=== PATIENT | male | born 1990 | race African-American/Black ===

== ENCOUNTER 2020-11-20 08:54 | Inpatient (IN) | payer OTHER ==
[~2020-11-20] VITALS: Ht 170.2 cm; Wt 75.0 kg
[2020-11-20] MEDS ORDERED: [UNRECOGNIZED DRUG - OTHER] PO (09:22)
[2020-11-20 09:25] LABS: HEMATOCRIT 44.4 % (42.0-52.0); HEMOGLOBIN 14.9 g/dl (13.5-17.5); MEAN CORPUSCULAR HEMOGLOBIN 30.6 pg (27.0-33.0); MEAN CORPUSCULAR HGB CONC 33.6 g/dl (32.0-36.5); MEAN CORPUSCULAR VOLUME 91.2 fl (80.0-96.0); PLATELET COUNT, AUTOMATED 318 10^3/uL (150-450); RED BLOOD COUNT 4.87 10^6/uL (4.30-6.10); WHITE BLOOD COUNT 5.7 10^3/uL (4.0-10.0)
[2020-11-20 10:19] LABS: ACETAMINOPHEN LEVEL < 2.0 UG/ML (10.0-30.0); ALBUMIN 4.2 GM/DL (3.2-5.2); ALT/SGPT 45 U/L (12-78); BILIRUBIN,DIRECT 0.2 MG/DL (0.0-0.2); BILIRUBIN,TOTAL 0.5 MG/DL (0.2-1.0); BLOOD UREA NITROGEN 11 MG/DL (7-18); CALCIUM LEVEL 8.9 MG/DL (8.5-10.1); CARBON DIOXIDE LEVEL 30 MEQ/L (21-32); CHLORIDE LEVEL 108 MEQ/L (98-107); CREATININE FOR GFR 0.86 MG/DL (0.70-1.30); ETHYL ALCOHOL (ETHANOL) < 0.003 % (0.000-0.010); GLOMERULAR FILTRATION RATE > 60.0 (>60); GLUCOSE, FASTING 108 MG/DL (70-100); POTASSIUM SERUM 4.3 MEQ/L (3.5-5.1); SALICYLATE LEVEL < 1.7 MG/DL (5.0-30.0); SODIUM LEVEL 142 MEQ/L (136-145); TOTAL PROTEIN 7.1 GM/DL (6.4-8.2)
[2020-11-20 10:47] LABS: AMPHETAMINES LEVEL URINE NEGATIVE (NEGATIVE); BARBITURATES URINE NEGATIVE (NEGATIVE); BENZODIAZEPINES URINE NEGATIVE (NEGATIVE); CANNABINOIDS URINE NEGATIVE (NEGATIVE); COCAINE METABOLITE URINE NEGATIVE (NEGATIVE); METHADONE URINE NEGATIVE (NEGATIVE); OPIATES URINE NEGATIVE (NEGATIVE); PHENCYCLIDINE URINE NEGATIVE (NEGATIVE)
[2020-11-20 12:59] LABS: RSV AMPLIFICATION NEGATIVE (NEGATIVE)
[2020-11-20] MEDS ORDERED: CVSTAB PO (14:13)
[2020-11-20] MEDS ORDERED: HOME MED LIST COMPLETE! XX SCH (14:15)
[2020-11-20] MEDS ORDERED: MOM 30ML SUSPENSION UDC PO PRN (16:30)
[2020-11-20] MEDS ORDERED: ACETAMINOPHEN TAB 650MG DOSE (2X325MG) PO PRN (16:30)
[2020-11-20] MEDS ORDERED: MAALOX 30 ML SUSP *UDC PO PRN (16:30)
[2020-11-20] MEDS ORDERED: traZODone 50 MG TAB PO PRN (16:30)
[2020-11-20 17:21] VITALS: BP 132/82
[2020-11-20] MEDS ORDERED: LORazepam 1 MG TAB PO PRN (17:30)
[2020-11-21 07:19] VITALS: BP 129/67
[2020-11-21 17:23] VITALS: BP 116/77
--- NOTE | 2020-11-21 19:44 | MHHPE ---
[facility] HISTORY AND PHYSICAL DATE OF ADMISSION: 11/20/2020 This is a video assessment done initially and I will be going to the hospital to see him [id number] as well. He is in the inpatient unit at the hospital, I am at home. VITAL SIGNS: Blood pressure 129/67, pulse 81, temperature 98.6. CHIEF COMPLAINT: Feels suicidal. SUBJECTIVE: He is 30 years old. He is . He has no children. His is in [facility] [place] [facility], which is where he is from originally. He is active duty at [employer]. He says he has been experiencing distress for the last few weeks, has had suicidal thoughts for the last few months, lately began developing plans, for example, overdosing or crashing his car. Cites several stressors. Says those include work. Says he could not really talk about it much, but also his being away from his and also her not having permission yet to come to the [facility]. He has applied for a visa, that was rejected. He now has an rolloff truck driver who is helping him. He has applied again. Says it may take a few months. Says with all this going on, and a deployment to [facility] last year, was away for about nine months. Says that went well. He returned, has carried on with his work. Says misses his , but that matters were going okay. He went on leave within the last couple of months. Says was on leave for about 17 days, stayed at home locally. Says felt relaxed, but when he returned to work, says there was new information related to work which applied to him and everybody else in the unit and that was stressful. Says this added to the stress related to his being away, his applying for her visa. Says has felt increasingly stressed afterwards as time has progressed over the last few weeks. His concentration has been difficult. Says he has had to work harder to maintain it so it does not impact his work. He says it has not impacted it, but that he has been concerned. Sleep is diminished. He does not think he slept with any regularity for the last several weeks. Continues with work and feels tired. Appetite has been diminished. Thinks he may have lost a few pounds. Began feeling hopeless, had suicidal thoughts. They have become more entrenched, particularly over the last couple of weeks and then, when he found out further stressful news regarding work, and he alludes to it applying to him and others in the unit yesterday, says became further distressed, suicidal, called the [employer] suicidal hotline and was then brought to the hospital. He says does not seen relief given these conditions, work-related as well as his , until these matters are resolved. Has a few local supports, but she did not go into detail. He does say would not talk about his personal matters with them in any case. His father lives on [place]. Has a sister in [place]. He is in touch with them. Says they get along. He has been in touch with his by Face Time daily. He is further worried, as the situation in [facility] has been quite unstable the last few months. No history consistent with hypomania nor sandro. No psychosis or posttraumatic stress disorder. Says never felt distraught or stressed before. Has had stressors, but not to this extent. PAST PSYCHIATRIC HISTORY: None formally. No history of inpatient psychiatric hospitalization or suicidal plans. Says has taken [id number] medications to help with anxiety, but does not think that they have been helpful. SUBSTANCE ABUSE HISTORY: Noncontributory. FAMILY PSYCHIATRIC HISTORY: Denies any. MEDICAL HISTORY: Denies any major medical difficulties. ALLERGIES: No known drug allergies. SOCIAL HISTORY: Was born and raised in [place] [place] [facility] until he was about 9. Says his mother when he was about 3 years old. His father's mother brought him up until the patient left for the [place] at the age of 9. Says his father was already here. He stayed with him in [place]. Says that was okay for a few years, but became more difficult because of the stepmother, though he did not go into details. He says the father and stepmother would quarrel a lot, then they eventually and . Patient stayed with the father in the [place] area, graduated from there, and went to live with his sister, who was by then in [place], older sister. 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 Remains in touch and close with his father. He has been to his since May of this year. He has applied for a visa for her to come into the [facility]. He has no children. Says generally has been able to make friends, but does not think he has any close friends. One deployment. MENTAL STATUS EXAMINATION: He is neat. He is cooperative, though guarded, particularly initially. No agitation. No psychomotor retardation. He is coherent. He is anxious, stressed with restricted affect. No abnormal movements noted. Has suicidal thoughts. Has had plans, but not in hospital. No homicidal ideas or intents. No evidence of any psychosis. No fluctuation of consciousness. Cognition grossly intact. Intellect average. Judgment and insight are compromised. ASSESSMENT: 1. Adjustment disorder with depressed mood and anxiety. 2. Rule out major depressive disorder. 3. Work related stress, recent, and being away from , awaiting visa. Has been stressed, significantly so lately, work-related, even more so related to work the last couple of days. Matters that he says are distressing but emergent. Alluded to the possibility of deployment. This is in addition to worry about his who awaits a visa, is in [facility], which is quite unstable itself at present. No premorbid difficulties reported of clinical significance. PLAN: He is admitted to inpatient psychiatry unit, placed on relevant precautions. We will look at obtaining collateral information. He will receive a medicine consultation if indicated. Will involve him in individual, group and milieu therapy. He will be discharged with followup once he is stable. He will be placed on medication to help with anxiety as needed. I do not see, as yet, a firm indication for scheduled psychotropics. I anticipate a 5-7 day stay. Further recommendations to be made depending on the clinical picture. The assessment took 60 minutes.
[2020-11-22 06:44] VITALS: BP 117/60
--- NOTE | 2020-11-22 11:12 | HPEPDOC ---
General Date of Admission Nov 20, 2020 at 16:29 Date of Service: Nov 22, 2020 Chief Complaint The patient is a 30-year-old male admitted with a reason for visit of Unspecified Depressive Disorder. 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 He is being examined here for medical history and physical. Patient continues to feel stressed about his work, his in [place] and depressed with poor appetite and poor sleep. Does not have any medical complaints. Home Medications Scheduled Diphenhydramine HCl (Nighttime Sleep Aid) 25 Mg Tablet, 50 MG PO QHS, (Reported) [maria g-filled] , 2 TAB PO DAILY, (Reported) Allergies Coded Allergies: No Known Allergies (Unverified , 11/20/20) Past Medical History Medical History None Family History Significant Family History: Diabetes (father) Social History * Smoker: Denies Alcohol: Denies Drugs: denies A-FIB/CHADSVASC A-FIB History Current/History of A-Fib/PAF?: No Review of Systems Constitutional: Denies: Chills, Fever, Night Sweats Eyes: Denies: Pain, Vision change ENT: Denies: Head Aches, Ear Pain, Dysphagia Skin: Denies: Rash, Lesions, Breakdown Pulmonary: Denies: Dyspnea, Cough Cardiovascular: Denies: Chest Pain, Palpitations, Orthopnea, Paroxysmal Noc. Dyspnea, Lt Headedness Gastrointestinal: Denies: Nausea, Vomiting, Abdominal Pain, Diarrhea Genitourinary: Denies: Dysuria, Frequency, Incontinence, Retention Hematologic: Denies: Bruising, Bleeding Excessively Musculoskeletal: Denies: Neck Pain, Back Pain, Joint Pain, Muscle Pain, Spasms Neurological: Denies: Weakness, Numbness, Change in speech, Confusion Psych: Denies: Memory Issues Physical Examination General Exam: Positive: Alert, No Acute Distress Eye Exam: Positive: PERRLA, Conjunctiva & lids normal, EOMI; Negative: Sclera icteric ENT Exam: Positive: Atraumatic, Mucous membr. moist/pink, Pharynx Normal Neck Exam: Positive: Supple; Negative: JVD, thyromegaly Chest Exam: Positive: Clear to auscultation, Normal air movement Heart Exam: Positive: Rate Normal, Regular Rhythm, Normal S1, Normal S2; Negative: Murmurs, Rubs Telemetry: Positive: No significant arrhythmia Abdomen Exam: Positive: Normal bowel sounds, Soft; Negative: Tenderness, Hepatospenomegaly Extremity Exam: Positive: Normal pulses; Negative: Clubbing, Cyanosis, Edema Skin Exam: Positive: Nl turgor and temperature; Negative: Breakdown, Lesion Neuro Exam: Positive: Normal Gait, Normal Speech, Cranial Nerves 3-12 NL, Reflexes 2+ Psych Exam: Positive: Memory Intact, Oriented x 3 Vital Signs Vital Signs Date Time Temp Pulse Resp B/P (MAP) Pulse Ox O2 Delivery O2 Flow Rate FiO2 11/22/20 06:44 98.5 57 16 117/60 (79) 100 Room Air Assessment/Plan 30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 He is being examined here for medical history and physical. No acute medical issues at this time Depression/ adjustment disorder with depressed mood as per psychiatry Plan / VTE VTE Prophylaxis Ordered?: No (freely ambulatory) RICH REED MD Nov 22, 2020 08:45
[2020-11-22 18:24] VITALS: BP 127/69
[2020-11-23 06:52] VITALS: BP 126/82
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
[2020-11-23] MEDS: ESCITALOPRAM OXALATE 10 MG TAB (LEXAPRO) PO SCH (11:24)
--- NOTE | 2020-11-23 12:06 | MHIPN ---
[facility] PROGRESS NOTE DATE: 11/22/2020 This is an addendum to the note I dictated earlier today. The patient is seen in person in the [facility], this is belated from earlier today. I discussed my assessment and treatment recommendations and plan with him. He will be seeing the assigned clinician tomorrow, and further recommendations will be made.
[2020-11-23 17:49] VITALS: BP 135/77
[2020-11-24 06:54] VITALS: BP 147/81
[2020-11-24] MEDS: ESCITALOPRAM OXALATE 10 MG TAB (LEXAPRO) PO SCH (08:33)
--- NOTE | 2020-11-24 11:32 | MHIPNPDOC ---
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 Reports compounding stress from work and factors in his personal life that has resulted in anxiety depression and suicidal ideations. He states he has not like this very much. After meals and medication he reports going back to bed. He has not attended any group sessions and does not seem to be engaging with other patients on the floor and the staff. VITAL SIGNS: See below. NEW TEST RESULTS: . CURRENT MEDICATIONS: See below. MENTAL STATUS EXAMINATION: Patient is a 30-year old male, who was sleeping in bed upon entering the room. Speech: Is good. Language skills are good. Thought processes including: Good. Thought content: Depressed/anxiety. Abstract reasoning, and computation: Appropriate. Description of associations: . Description of abnormal or psychotic thoughts: None reported at this time. Judgment: Appropriate. Insight: Good. Orientation: Appropriate. Recent and remote memory: Intact. Attention span and concentration: Appropriate. Language: Appropriate. Fund of knowledge: . Mood: Good (depressed). Affect: Good (depressed). DIAGNOSES: 1. Adjustment disorder with depressed mood and anxiety 2. Major depressive disorder, single episode, moderate, without psychotic features ASSESSMENT: Patient reports being less depressed than he was yesterday. He has taken so far 2 doses of the new medication escitalopram. He is sleeping on and not engaging with patients or staff members. He has been encouraged to partake in group and engage with others and explained that this is part of the treatment process. Continue lorazepam for anxiety/agitation and trazodone for insomnia, continue the escitalopram for major depressive disorder. MANAGEMENT PLAN: Continue medications. Will consider increasing dose of Lexapro prior to discharge. Patient is to follow-up with [facility]. TIME SPENT: 25 minutes. Vital Signs Vital Signs Date Time Temp Pulse Resp B/P (MAP) Pulse Ox O2 Delivery O2 Flow Rate FiO2 11/24/20 06:54 98.7 68 16 147/81 (103) 99 Room Air Current Medications Current Medications Medications (Trade) Dose Ordered Sig/Kayley Route PRN Reason Start Time Stop Time Status Last Admin Dose Admin Acetaminophen (Tylenol Tab) 650 mg Q6HP PRN PO HEADACHE or MILD DISCOMFORT 11/20/20 16:30 Al Hydrox/Mg Hydrox/Simethicone (Mylanta) 30 ml Q4HP PRN PO HEARTBURN/INDIGESTION 11/20/20 16:30 Escitalopram Oxalate (Lexapro) 10 mg DAILY PO 11/23/20 11:00 11/24/20 08:33 Home Med (Home Med List Complete!) ASDIRECTED XX 11/20/20 14:15 11/20/20 14:16 DC Lorazepam (Ativan) 1 mg Q4HP PRN PO ANXIETY/AGITATION 11/20/20 17:30 Magnesium Hydroxide (Milk Of Magnesia) 30 ml DAILYPRN PRN PO CONSTIPATION 11/20/20 16:30 Trazodone HCl (Desyrel) 50 mg QHSP PRN PO INSOMNIA 11/20/20 16:30 11/21/20 20:53 Allergies Coded Allergies: No Known Allergies (Unverified , 11/20/20) Leonard Moore DO Nov 24, 2020 11:17 FORREST RUIZ NP Nov 24, 2020 14:49
[2020-11-24 16:30] VITALS: BP 132/72
[2020-11-25 07:03] VITALS: BP 122/67
[2020-11-25] MEDS: ESCITALOPRAM OXALATE 10 MG TAB (LEXAPRO) PO SCH (08:30)
[2020-11-25] MEDS ORDERED: LEXA1TAB PO (10:00)
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
== END 2020-11-25 12:44 | disposition home or self-care (01) | DRG 885 ==
LOC: M ED 08:54 → M ED INP 16:29 → M PSY 17:19
PROVIDERS: ADMIT Psychiatry & Neurology Psychiatry; ATTEND Psychiatry & Neurology Psychiatry
DX: F32.1 Major depressive disorder, single episode, moderate (principal); R45.851 Suicidal ideations; Z63.5 Disruption of family by separation and divorce; Z56.6 Other physical and mental strain related to work; Z91.82 Personal history of military deployment; F43.23 Adjustment disorder with mixed anxiety and depressed mood; Z20.822 Contact with and (suspected) exposure to COVID-19

== ENCOUNTER → 2021-09-08 | Outpatient (CLI) | payer OTHER ==
[~2021-09-08] MED LIST: CVSTAB PO; LEXA1TAB PO; [UNRECOGNIZED DRUG - OTHER] PO
[2021-09-08 13:39] LABS: PLATELET COUNT, AUTOMATED 280 10^3/uL (150-450)
[2021-09-08 13:58] LABS: INR 1.03; PROTHROMBIN TIME 13.9 SECONDS (12.7-14.5)
[2021-09-08 13:59] LABS: PARTIAL THROMBOPLASTIN TIME 26.4 SECONDS (25.9-37.0)
== END ==
LOC: M LAB 12:45
PROVIDERS: ATTEND Physical Medicine & Rehabilitation
DX: M51.36 Other intervertebral disc degeneration, lumbar region (principal)

== ENCOUNTER → 2022-03-17 | Outpatient (REF) | LOC: M PLAIMG 10:12 | PROVIDERS: ATTEND Internal Medicine | DX: M54.50 Low back pain, unspecified (principal) ==

== ENCOUNTER → 2022-12-09 | Outpatient (CLI) | payer OTHER | LOC: M RAD 09:08 | PROVIDERS: ATTEND Nurse Practitioner Family | DX: R79.89 Other specified abnormal findings of blood chemistry (principal); K76.0 Fatty (change of) liver, not elsewhere classified ==